=== PATIENT | male | born 1995 | race Caucasian/White ===

== ENCOUNTER 2019-11-02 12:23 | Emergency (ER) | payer MEDICAID, OTHER ==
[~2019-11-02] VITALS: Ht 185.4 cm; Wt 104.5 kg
[2019-11-02 12:29] VITALS: BP 153/74
[2019-11-02] MEDS ORDERED: ibuprofen 200mg tablet PO ONE (13:00)
[2019-11-02] MEDS ORDERED: ibuprofen tablet 400 MG TABLET PO ONE (13:00)
[2019-11-02] MEDS ORDERED: ALBU8HFA PO (14:03)
== END 2019-11-02 14:39 | disposition home or self-care (01) ==
LOC: ER 12:24
DX: J02.9 Acute pharyngitis, unspecified (principal); R05 Cough; R50.9 Fever, unspecified; R19.7 Diarrhea, unspecified; R06.02 Shortness of breath; Z20.828 Contact with and (suspected) exposure to other viral communicable diseases; Z88.1 Allergy status to other antibiotic agents; Z88.8 Allergy status to other drugs, medicaments and biological substances
CPT/HCPCS: 36415; 71045; 99284; U0003